=== PATIENT | male | born 1980 | race African-American/Black ===

== ENCOUNTER → 2020-01-29 | Outpatient (CLI) | payer BC, OTHER ==
[~2020-01-29] MED LIST: APAP/CODEINE ELI5 M1 OR; LISINOPRIL/HYDROCHLO
== END ==
LOC: SJCVCIMAG
PROVIDERS: ATTEND Family Medicine
DX: M79.604 Pain in right leg (principal); M79.605 Pain in left leg; M79.89 Other specified soft tissue disorders

== ENCOUNTER → 2020-01-29 | Outpatient (CLI) | payer OTHER | LOC: RAD 09:54 | PROVIDERS: ATTEND Family Medicine | DX: Z13.6 Encounter for screening for cardiovascular disorders (principal); E78.00 Pure hypercholesterolemia, unspecified; I25.10 Atherosclerotic heart disease of native coronary artery without angina pectoris ==

== ENCOUNTER 2020-02-21 11:42 | Emergency (ER) | payer BC, OTHER ==
[~2020-02-21] VITALS: Ht 175.3 cm; Wt 97.5 kg
[2020-02-21] MEDS ORDERED: METOPROLOL TART25 MG PO (12:10)
[2020-02-21] MEDS ORDERED: TERBINAFINE HC250 MG PO (12:11)
[2020-02-21 12:44] LABS: ABSOLUTE NEUTROPHILS 2.4 thou/uL (1.4-8.2); BASOPHILS 1.2 % (0.0-2.0); EOSINOPHILS 9.8 % (0.0-3.0); HEMATOCRIT 47.1 % (42.0-52.0); HEMOGLOBIN 15.5 gm/dL (14.0-18.0); LYMPHOCYTES 31.3 % (24.0-44.0); MCHC 32.9 g/dL (28.0-37.0); MCV 91.1 fL (80.0-100.0); MONOCYTES 9.6 % (1.0-8.0); POLYS 48.1 % (36.0-66.0); RBC 5.17 mil/uL (4.50-6.00); RDW 14.5 % (10.5-14.5); WBC 4.9 thou/uL (4.0-11.0)
[2020-02-21 12:58] LABS: ANION GAP 12 mmol/L (7-16); BUN 16 mg/dL (7-18); CALCIUM 9.8 mg/dL (8.5-10.1); CHLORIDE 106 mmol/L (98-107); CO2 23 mmol/L (21-32); GLUCOSE 93 mg/dL (74-106); SODIUM 141 mmol/L (136-145)
[2020-02-21 12:59] LABS: POTASSIUM 4.7 mmol/L (3.5-5.1)
[2020-02-21 13:05] LABS: TROPONIN-I <0.06 ng/mL (<0.06)
[2020-02-21 13:21] LABS: PLATELET COUNT 218 thou/uL (150-400)
[2020-02-21 13:59] LABS: AMP/METHAMP Negative (Negative); BARBITURATES Negative (Negative); BENZODIAZEPINES Negative (Negative); COCAINE Negative (Negative); METHADONE Negative (Negative); OPIATES Negative (Negative); PCP Negative (Negative)
[2020-02-21 14:51] VITALS: BP 132/98
--- NOTE | 2020-02-22 15:12 | EKG ---
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 : 1980 Requested By: Josh Alvarez Order Number: [id number] MD: Jose Roberto Rosario Measurements Intervals Brandon Rate: 72 P: 66 PA: 136 QRS: 67 QRSD: 68 T: 13 QT: 352 QTc: 386 Interpretive Statements Sinus rhythm ST elev, probable normal early repol pattern No previous ECG available for comparison Electronically Signed On 02-22-2020 15:11:46 BAIL BONDSMAN by Jose Roberto Rosario [email or web address] <ELECTRONICALLY SIGNED> By: Jose Roberto Rosario MD, [facility] 02/22/20 1511 1148 1148 Jose Roberto Rosario MD, FACC /EPI
== END 2020-02-21 14:52 | disposition home or self-care (01) ==
LOC: ER 11:42
PROVIDERS: Emergency Medicine; Nurse Practitioner
DX: R07.89 Other chest pain (principal); I10 Essential (primary) hypertension; Z79.899 Other long term (current) drug therapy